=== PATIENT | female | born 1940 | race Caucasian/White ===

== ENCOUNTER 2018-07-01 11:49 | Emergency (ER) | payer MEDICARE, OTHER ==
[~2018-07-01] VITALS: Ht 175.3 cm; Wt 81.6 kg
--- NOTE | 2018-07-01 11:49 | NUR ---
ZAHIRA 89 FROM HOME C/O R RIB CAGE PAIN S/P GLF x 3 DAYS AGO. TO ER BED 3, HOOKED TO MONITOR, CHANGED TO GOWN, PROVIDED W WARM BLANKET, AWAITING MD HOUGH.
--- NOTE | 2018-07-01 13:15 | NUR ---
DR MUSA AT BEDSIDE FOR EVAL.
--- NOTE | 2018-07-01 14:29 | NUR ---
Patient discharged to home in stable condition. Ambulatory w steady gait. Written and verbal after care instructions given. Patient verbalizes understanding of instruction.
[2018-07-01 14:30] VITALS: BP 143/78
== END 2018-07-01 14:31 | disposition home or self-care (01) ==
LOC: ER 11:52
DX: S20.211A Contusion of right front wall of thorax, initial encounter (principal); F41.9 Anxiety disorder, unspecified; Z85.841 Personal history of malignant neoplasm of brain; Z98.890 Other specified postprocedural states; W18.39XA Other fall on same level, initial encounter; Y93.01 Activity, walking, marching and hiking; Y92.89 Other specified places as the place of occurrence of the external cause; Y99.8 Other external cause status
CPT/HCPCS: 71100-TC

== ENCOUNTER 2019-11-23 12:13 | Inpatient (IN) | payer OTHER, MEDICARE ==
[~2019-11-23] VITALS: Ht 175.3 cm; Wt 66.2 kg
--- NOTE | 2019-11-23 12:42 | NUR ---
ZAHIRA FROM HOME TO ER BED 6. AAOX4. NOT IN RESP DISTRESS, BREATHING EVEN AND UNLABORED. CAME IN FOR GENERALIZED WEAKNESS, COUGH X 6MONTH AND SOB X 1 MONTH. DURING ASSESSMENT, PT VERBALIZED THAT SHE IS UNABLE TO CARE FOR HER SELF BECAUSE SHE IS GETTING WEAKER D/T THE SOB AND COUGH. PT STATES THAT SHE HAVE A CAREGIVER THAT COMES BUT WASNT UNABLE TO HELP. SHE IS UNABLE TO PREPARE MEALS AND CARE FOR HER SELF. PT WAS NOTED WITH PRODUCTIVE COUGH W/ YELLOW SPUTUM. PT ALSO STATES THAT IT IS DIFFICULT FOR HER TO WALKED AROUND THE HOUSE. WAS AT THE BEDSIDE FOR EVAL. ORDERS RECEIVED NOTED AND CARRIED OUT. IV LINE EXTABLISHED ON L HAND 18G, BLOOD DRAWN AND GIVEN TO CIRCUIT RIDER.
[2019-11-23 12:53] LABS: BASOPHILS % (AUTO) 0.4 % (0.0-2.0); EOSINOPHILS % (AUTO) 0.5 % (0.0-6.0); HEMATOCRIT 43 % (33-45); LYMPHOCYTES # (AUTO) 0.9 /CMM (0.8-4.8); LYMPHOCYTES % (AUTO) 9.3 % (20.0-44.0); MEAN CORPUSCULAR HGB CONC 33 g/dl (31.0-36.0); MEAN CORPUSCULAR VOLUME 96 fL (82-100); MONOCYTES # (AUTO) 0.5 /CMM (0.1-1.30); NEUTROPHILS # (AUTO) 8.3 /CMM (1.8-8.9); NEUTROPHILS % (AUTO) 84.8 % (43.0-81.0); PLATELET COUNT (AUTO) 318 /CMM (150-450); RED BLOOD CELL COUNT(AUTO) 4.52 MIL/uL (4.0-5.2); WHITE BLOOD COUNT (AUTO) 9.7 K/uL (4.3-11.0)
[2019-11-23] MEDS ORDERED: IV NS 0.9% 1,000 ML BAG IV ONE (13:00)
[2019-11-23 13:03] LABS: CALCIUM, SERUM 9.6 mg/dL (8.5-10.1); CARBON DIOXIDE 27 mmol/L (21-32); CHLORIDE 105 mmol/L (98-107); CREATININE 0.8 mg/dL (0.6-1.3); GLUCOSE 129 mg/dL (74-106); POTASSIUM 4.2 mmol/L (3.5-5.1); SODIUM SERUM 139 mmol/L (136-145); UREA NITROGEN, BLOOD 25 mg/dL (7-18)
[2019-11-23 13:16] LABS: ALANINE AMINOTRANSFERASE 16 U/L (12-78); ALKALINE PHOSPHATASE 88 U/L (46-116); ASPARTATE AMINOTRANSFERASE 14 U/L (15-37); B-TYPE NATRIURETIC PEPTIDE 83 PG/ML (0-125); BILIRUBIN,DIRECT 0.1 mg/dL (0.0-0.2); BILIRUBIN,TOTAL 0.3 mg/dL (0.2-1.0); TOTAL PROTEIN, SERUM 8.1 g/dL (6.4-8.2)
--- NOTE | 2019-11-23 13:28 | NUR ---
TO CT ON [place]
--- NOTE | 2019-11-23 13:37 | NUR ---
CALLED [facility], PAGED DR BAEZA
--- NOTE | 2019-11-23 13:42 | NUR ---
PT PROVIDED WITH MEAL
--- NOTE | 2019-11-23 14:58 | NUR ---
BED 102
--- NOTE | 2019-11-23 15:19 | NUR ---
REPORT GIVEN TO GREER DAY FOR HENRY
--- NOTE | 2019-11-23 15:30 | NUR ---
RECEIVED REPORT FROM ER
--- NOTE | 2019-11-23 15:59 | NUR ---
PT [place]SP[place] WITH EMT AND RN AT BEDSIDE. NAD NOTED DURING TRANSPORT.
[2019-11-23 16:00] VITALS: BP 160/77
[2019-11-23] MEDS ORDERED: ACETAMINOPHEN 325 MG TABLET PO PRN (16:00)
[2019-11-23] MEDS ORDERED: Z GUARD REMEDY 2 OZ OINT TP PRN (16:00)
[2019-11-23] MEDS ORDERED: HYDROCODONE/APAP 5/325MG TABLET PO PRN (16:00)
[2019-11-23] MEDS ORDERED: MAGNESIUM HYDROXIDE 30 ML UDC PO PRN (16:00)
[2019-11-23] MEDS ORDERED: MAG HYDROX/AL HYDROX/SIMETH 30 ML UDC PO PRN (16:00)
[2019-11-23] MEDS ORDERED: ZOLPIDEM TARTRATE 5 MG TABLET PO PRN (16:00)
--- NOTE | 2019-11-23 16:00 | NUR ---
RECEIVED PATIENT FROM ER ACCOMPANIED BY 2 NURSES. PATIENT IS ALERT SPEAKS BELIZEAN X4. COMPLAINS OF CHEST PAIN THAT STARTED ABOUT AN HOUR AGO. SEEN BY DR. BAEZA. PER PATIENT SHE HAS BEEN VOMITING FOR MORE THAN 3 DAYS NOW. MOSTLY FROM COUGHING OF SPUTUM YELLOW IN COLOR. PATIENT HAS HIGH BP 160SBP. PER DR. BAEZA OKAY NOT TI GIVE BP MEDS MIGHT CAUSE MORE BLEEDING. NSR 70S NOTED WITH BUNDLE BRANCH BLOCK. PATIENT UNABLE TO AMBULATE USES BEDPAN. ON SOFT DIET. HAS L HAND # 18. SAFETY MEASURES IMPLEMENTED. WILL CLOSELY MONITOR.
[2019-11-23] MEDS: IV D5/0.45 NACL 1,000 ML IV PRN (16:26)
--- NOTE | 2019-11-23 19:00 | NUR ---
RN CLOSING NOTE Patient in bed awake watching TV appears calm and relaxed no signs of distress. On NC 4L tolerating well. AO x4. NSR 70-80s. Has L Hand #18 running D5 1/2 NS @ 75ml/hr. Safety measures reinforced. Call light within reach. Will endorse to mold blower nurse.
[2019-11-23 20:00] VITALS: BP 143/61
[2019-11-23] MEDS: ONDANSETRON HCL/PF 4 MG/2 ML VIAL IVP PRN (23:48)
[2019-11-24] VITALS: BP 137/61
[2019-11-24 04:00] VITALS: BP 132/66
[2019-11-24] MEDS: IV D5/0.45 NACL 1,000 ML IV PRN ×2 (05:42→20:11)
[2019-11-24 06:27] LABS: BASOPHILS % (AUTO) 0.4 % (0.0-2.0); EOSINOPHILS % (AUTO) 2.1 % (0.0-6.0); HEMATOCRIT 40 % (33-45); HEMOGLOBIN 12.8 g/dL (11.5-14.8); LYMPHOCYTES # (AUTO) 1.5 /CMM (0.8-4.8); LYMPHOCYTES % (AUTO) 14.7 % (20.0-44.0); MEAN CORPUSCULAR HGB CONC 32 g/dl (31.0-36.0); MEAN CORPUSCULAR VOLUME 95 fL (82-100); MONOCYTES # (AUTO) 0.7 /CMM (0.1-1.30); MONOCYTES % (AUTO) 6.7 % (2.0-12.0); NEUTROPHILS # (AUTO) 7.6 /CMM (1.8-8.9); NEUTROPHILS % (AUTO) 76.1 % (43.0-81.0); PLATELET COUNT (AUTO) 287 /CMM (150-450); RED BLOOD CELL COUNT(AUTO) 4.21 MIL/uL (4.0-5.2); WHITE BLOOD COUNT (AUTO) 9.9 K/uL (4.3-11.0)
[2019-11-24 06:35] LABS: CALCIUM, SERUM 8.8 mg/dL (8.5-10.1); CREATININE 0.6 mg/dL (0.6-1.3); PHOSPHORUS 3.4 mg/dL (2.5-4.9); POTASSIUM 4.1 mmol/L (3.5-5.1)
[2019-11-24 06:36] LABS: THYROID STIMULATING HORMONE 0.939 uIU/mL (0.358-3.74)
--- NOTE | 2019-11-24 06:56 | NUR ---
TEXTED DR. SY FOR MRI APPROVAL
--- NOTE | 2019-11-24 07:24 | NUR ---
RN [facility] NOTES Received patient alert, oriented x4. Appears comfortable with no acute distress. On O2 via N/C at 4LPM with O2 saturation of 97%. Will keep safe and comfortable. IV site on left hand intact and infusing well. Will continue to monitor. Addendum: 11/24/19 at 0736 by ODETTE STEWART RN Pt on tele monitor with NSR noted. Call light left within reach for easy access.
[2019-11-24] MEDS: PANTOPRAZOLE 40 MG TABLET.DR PO SCH (07:44)
[2019-11-24 08:00] VITALS: BP 139/61
--- NOTE | 2019-11-24 10:30 | NUR ---
RN/EDITH NO CHEMICAL PROPHYLAXIS ORDERED FOR VTE RISK. DR. ARYAN WARD NOTIFIED. AWAITING ORDERS
--- NOTE | 2019-11-24 10:42 | NUR ---
RN/[facility] PATIENT MRI SCHEDULED FOR TODAY PUT ON HOLD. AWAITING COVID TEST RESULTS. PER EN, RADIOLOGY. Addendum: 11/24/19 at 1043 by ROSY SAUNDERS RN ADDENDUM- DR. ORDONEZ NOTIFIED WELL.
[2019-11-24] MEDS: ONDANSETRON HCL/PF 4 MG/2 ML VIAL IVP PRN (11:45)
[2019-11-24 12:00] VITALS: BP 137/66
[2019-11-24] MEDS ORDERED: CT SWABBABLE VALVE TRANS SET 1 EA INFUS.SET MC ONE (15:42)
[2019-11-24] MEDS ORDERED: IOHEXOL-350 100 ML VIAL IV ONE (15:42)
[2019-11-24] MEDS ORDERED: IV NS 0.9% 250 ML IV ONE (15:43)
[2019-11-24 16:00] VITALS: BP 143/68
[2019-11-24] MEDS: AZITHROMYCIN 500 MG in IV D5W 250 ML IV SCH (16:10)
[2019-11-24] MEDS: CEFTRIAXONE 1 G in IV D5W 50 ML IV SCH (16:11)
--- NOTE | 2019-11-24 18:14 | NUR ---
PATIENT IN BED. NO ACUTE DISTRESS NOTED. PATIENT ALERT & ORIENTED X4. PATIENT ON 4L OXYGEN VIA NASAL CANULA, SATURATING WELL AT 97%. PATIENT ON LEAD SOFTWARE TEST ENGINEER, SINUS RHYTHM NOTED. PATIENT LEFT ANTECUBITAL IV ACCESS INTACT, PATENT, FLUSHED WELL. PATIENT SAFETY MEASURES MAINTAINED. CALL LIGHT WITHIN REACH. WILL ENDORSE PLAN OF CARE TO ONCOMING NURSE FOR CONTINUITY OF CARE.
--- NOTE | 2019-11-24 19:00 | NUR ---
RN NOTES: RECEIVED AWAKE ON BED, LYING COMFORTABLY, A/OX 3-4, CONVERSANT, ORIENTED TO UNIT AND STAFF, ON O2 AT 4l/MIN, SPO2-96-97%, IV SITE LAC INTACT WITH D5%1/2NS AT 75 ML/HR VIA INFUSION PUMP,PER ENDORSEMENT COVID TEST IS NEGATIVE,CT SCAN DONE IN THE MORNING SHIFT AWAITING FOR RESULT, MRI CONSENT AND QUESTIONNAIRE DONE. -NO SIGN OF RESPIRATORY DISTRESS NOTED WITH ON AND OFF COUGH, COOPERATIVE, ABLE TO MAKE NEEDS KNOWN. KEPT CALL LIGHT WITHIN EASY REACH, FALL,SAFETY AND ASPIRATION PRECAUTION OBSERVED.
[2019-11-24 20:00] VITALS: BP 141/67
--- NOTE | 2019-11-24 20:35 | NUR ---
RN NOTES: ON CONTINUITY TESTER SR WITH BBB RATE IS 76, ABLE TO MAKE NEEDS KNOWS, GIVEN WARM BLANKET, IVF NEW BOTTLE STARTED AT 2010.
[2019-11-25] VITALS (7 sets, daily range): BP systolic 104–157; BP diastolic 63–72
[2019-11-25 06:22] LABS: BASOPHILS % (AUTO) 0.3 % (0.0-2.0); EOSINOPHILS % (AUTO) 1.5 % (0.0-6.0); HEMATOCRIT 39 % (33-45); HEMOGLOBIN 12.6 g/dL (11.5-14.8); LYMPHOCYTES # (AUTO) 1.2 /CMM (0.8-4.8); LYMPHOCYTES % (AUTO) 10.6 % (20.0-44.0); MEAN CORPUSCULAR HGB CONC 33 g/dl (31.0-36.0); MEAN CORPUSCULAR VOLUME 95 fL (82-100); MONOCYTES # (AUTO) 0.8 /CMM (0.1-1.30); MONOCYTES % (AUTO) 7.4 % (2.0-12.0); NEUTROPHILS # (AUTO) 8.7 /CMM (1.8-8.9); NEUTROPHILS % (AUTO) 80.2 % (43.0-81.0); PLATELET COUNT (AUTO) 268 /CMM (150-450); RED BLOOD CELL COUNT(AUTO) 4.08 MIL/uL (4.0-5.2); WHITE BLOOD COUNT (AUTO) 10.9 K/uL (4.3-11.0)
[2019-11-25 06:53] LABS: CALCIUM, SERUM 8.5 mg/dL (8.5-10.1); CREATININE 0.6 mg/dL (0.6-1.3); PHOSPHORUS 3.4 mg/dL (2.5-4.9); POTASSIUM 3.6 mmol/L (3.5-5.1)
--- NOTE | 2019-11-25 07:30 | NUR ---
RN OPENING NOTES Received patient in bed, A/Ox3, on NC on 4L of O2, saturating well no s/sx of resp arrest or SOB noted. SPO2 94%, IV line noted in L AC, intact and patent, flushed. Denies pain or discomfort at this moment. Safety measures implemented, call light in reach, will cont to monitor
[2019-11-25] MEDS: PANTOPRAZOLE 40 MG TABLET.DR PO SCH (07:32)
--- NOTE | 2019-11-25 09:22 | NUR ---
seen and evaluated by dr. do want to transfer patient to higher level of care need neuro surgeon dr. braun aware,case management alin notified,awaits bed noncovid floor.
--- NOTE | 2019-11-25 10:00 | NUR ---
TRANSFER FROM [facility] PT TRANSFERRED FROM [facility]. BROUGHT IN BY [facility] NURSES. NO CARDIAC OR RESPIRATORY DISTRESS NOTED. NO SOB NOTED. SATURATING WELL ON O2 VIA NASAL CANULLA. AOX4. IV ACCESS NOTED ON L AC G 18. INTACT AND PATENT AND FLUSHING WELL. NO S/S OF INFECTION OR INFILTRATION NOTED. SAFETY PRECAUTIONS IN PLACE. BED LOCKED AND IN LOW POSITION. SIDE RAILS UP X2. BED ALARM ON. WILL CONT TO MONITOR.
--- NOTE | 2019-11-25 10:30 | NUR ---
Transferee patient to [facility], report given to Ksenia
--- NOTE | 2019-11-25 12:00 | NUR ---
IV ACCESS L AC IV INFILTRATED. REMOVED. APPLIED ICE PACK. IV REINSERTED ON R WRIST G20. INTACT AND PATENT AND FLUSHING WELL.
[2019-11-25] MEDS: ONDANSETRON HCL/PF 4 MG/2 ML VIAL IVP PRN (12:19)
[2019-11-25] MEDS: AZITHROMYCIN 500 MG in IV D5W 250 ML IV SCH (15:46)
[2019-11-25] MEDS: IV D5/0.45 NACL 1,000 ML IV PRN (16:27)
--- NOTE | 2019-11-25 17:00 | NUR ---
REPORT TO [facility] ALVARE[facility] PT WILL BE TRANSFERRED TO [facility]INE AL[facility] FOR NEUROSURGERY CONSULT. REPORT GIVEN TO ADI BUTTERFIELD. PT WILL BE IN ROOM 1213 BED 1.
[2019-11-25] MEDS: CEFTRIAXONE 1 G in IV D5W 50 ML IV SCH (17:13)
--- NOTE | 2019-11-25 18:00 | NUR ---
D/C TO [facility] PT DISCHARGED TO [facility]. REPORT GIVEN TO MIKE BUTTERFIELD IN [facility]. PT WAS PICKED UP BY [facility] BY 2 SAFETY DEPOSIT CLERK. REPORT GIVEN TO SAFETY DEPOSIT CLERK. ALL D/C INSTRUCTIONS GIVEN TO MIKE BUTTERFIELD. D/C PAPERWORK ALONG WITH 2 CDS GIVEN TO SAFETY DEPOSIT CLERK [facility]. NO CARDIAC OR RESPIRATORY DISTRESS NOTED. NO SOB NOTED. SATURATING WELL ON O2 VIA NASAL CANULLA. AOX4. IV ACCESS NOTED ON R WRIST. INTACT AND PATENT AND FLUSHING WELL. NO S/S OF INFECTION OR INFILTRATION NOTED. PT SKIN INTACT. LEFT IN STABLE CONDITION.
== END 2019-11-25 18:15 | disposition short-term general hospital (02) | DRG 139 ==
LOC: ER 12:41 → TELE1 15:39 → MED 11-25 10:19
DX: J15.9 Unspecified bacterial pneumonia (principal); D33.3 Benign neoplasm of cranial nerves; R62.7 Adult failure to thrive; E46 Unspecified protein-calorie malnutrition; E88.09 Other disorders of plasma-protein metabolism, not elsewhere classified; Z68.21 Body mass index [BMI] 21.0-21.9, adult; E44.1 Mild protein-calorie malnutrition; E86.0 Dehydration; F41.9 Anxiety disorder, unspecified; Z86.011 Personal history of benign neoplasm of the brain
CPT/HCPCS: 36415; 70450-TC; 70496-TC; 70553-TC; 71045-TC; 71250-TC; 80048-TC; 80061-TC; 80076-TC; 83605-TC; 83735-TC; 83880; 84100-TC; 84443-TC; 84484-TC; 85025-TC; 85730-TC; 87040-TC; 87081-TC; 97530-TC; G0378; J0456; J0696; J2405; J3490; J7030; J7050; J7060; Q9967; U0003-CS